=== PATIENT | male | born 1965 | race Caucasian/White ===

== ENCOUNTER → 2025-06-08 | Day surgery (SDC) | payer BC, OTHER ==
[2025-06-02 09:55] LABS: Absolute Lymphocytes (CBC) 1.3 K/uL (0.7-4.9); Hematocrit 38.9 % (39.6-49.0); Hemoglobin 13.0 g/dL (13.6-17.9); MCH 28.4 pg (27.0-35.0); MCHC 33.5 g/dL (32.0-36.0); MCV 84.7 fL (80-100); MPV 7.6 fL (7.6-11.3); Nucleated RBC Absolute Count 0.0 (0-0); Nucleated Red Blood Cells % 0.0 % (0-0); RBC Red Blood Cell Count 4.60 M/uL (4.33-5.43); White Blood Count 5.90 thou/uL (4.3-10.9)
[2025-06-02 10:15] LABS: Anion Gap 7.2 mEq/L (5.0-15.0); BUN Blood Urea Nitrogen 13.0 mg/dL (7-18); Glucose Level 100.0 mg/dL (74-106); Potassium 4.2 mEq/L (3.5-5.1)
[~2025-06-08] MED LIST: GLYCOPYRROLATE 0.2 MG/ML SYR ONE; LIDOCAINE 1% MPF 5 ML VIAL ONE
[2025-06-08] MEDS: Ringers Lactate 1,000 ML IV ONE (07:15)
[2025-06-08 09:17] VITALS: O2SAT 99
[2025-06-08 09:32] VITALS: BP 128/83; TEMP 97.4
== END ==
LOC: OR 06:49
PROVIDERS: ATTEND Internal Medicine Gastroenterology
PROC: 0DJD8ZZ Inspection of Lower Intestinal Tract, Via Natural or Artificial Opening Endoscopic (ICD-10-PCS; principal; 2025-06-08 08:00)
DX: Z12.11 Encounter for screening for malignant neoplasm of colon (principal); K64.8 Other hemorrhoids; K57.30 Diverticulosis of large intestine without perforation or abscess without bleeding
CPT/HCPCS: 93005; 85025; 80048; 36415; 45378; J2704; J2003; J7120